=== PATIENT | male | born 1940 | race Caucasian/White ===

== ENCOUNTER 2019-07-01 16:06 | Inpatient (IN) | payer OTHER, SELFPAY ==
[2019-07-01] VITALS (12 sets, daily range): BP systolic 155–186; BP diastolic 86–95; PULSE 85–133; RESP 16–20; TEMP 36.7–36.8; O2SAT 95–97; BMI 28.9; BMI 28.8
--- NOTE | 2019-07-01 16:39 | EKG12_ITS ---
Test Reason : AFIB Blood Pressure : / mmHG Vent. Rate : 105 BPM Atrial Rate : 111 BPM P-R Int : 000 ms QRS Dur : 168 ms QT Int : 398 ms P-R-T Axes : 000 109 023 degrees QTc Int : 526 ms Atrial fibrillation with premature ventricular or aberrantly conducted complexes Right bundle branch block Inferior infarct , age undetermined Abnormal ECG Confirmed by KIMBERLY STOCKTON, ALLYSON ([id number]), associate editor ISAIAH OCASIO ([id number]) on 07/02/2019 1:37:54 PM Referred By: Confirmed By:ALLYSON HARRIS MD
--- NOTE | 2019-07-01 16:40 | RAD_ITS ---
STUDY: X-RAY CHEST REASON FOR EXAM: Male, 79 years old. SYNCOPE, PATIENT FOUND ON FLOOR BY FAMILY TECHNIQUE: Single AP portable view of the chest. COMPARISON: None. 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 The lungs are clear and expanded. There is no demonstrated pleural abnormality. There is borderline cardiomegaly. Normal mediastinum and huber. Normal visualized pulmonary arteries. There are calcified plaques of the aortic arch. There are diffuse degenerative changes of the visualized thoracic spine. Normal visualized ribs, clavicles, and shoulders. There is no demonstrated abnormality of the visualized soft tissue structures of the upper abdomen. RAD/Chest 1 View (Portable) IMPRESSION: Borderline heart size. Calcified plaques of the aortic arch. Degenerative changes of the thoracic spine. No acute cardiopulmonary disease process is seen. Electronically Signed: Abe Leonard MD at 16:55 EDT , Service support ,
--- NOTE | 2019-07-01 16:41 | ED.VISSUMM ---
- ER Visit Summary Date of Service: 07/01/19 Chief Complaint: Syncope History of Present Illness: The patient is a 79 M who presents with syncopal episode that occurred today. Patient states he was standing at home and then remembers waking up on the floor. Patient states his son called EMS. Patient states he thinks the syncopal episode only lasted a couple seconds. Patient denies any palpitations. Patient denies any lightheadedness or dizziness. Patient states he was feeling fine before and after the syncopal episode. Patient denies any other symptoms. Physical Examination: Vital signs are stable except for mild tachycardia of 108. Patient is afebrile. Patient is in no acute distress. Oral mucosa is pink and moist. Neck is supple. Trachea is midline. There is no JVD noted. Heart was irregularly irregular. Lungs are clear and equal bilaterally. Abdomen is soft. Bowel sounds are normal. There is no tenderness. There is no rebound or guarding noted. Skin is warm dry. Cranial nerves II through XII are intact. There are no focal motor or sensory deficits noted. Extremities are intact. There is no calf tenderness but there is 1+ edema of the lower legs bilaterally. Test Results: EKG shows atrial fibrillation with a rate of 105. There is a right bundle branch block pattern noted. There are no acute ST or T wave changes. CBC was within normal limits. Comprehensive metabolic profile showed slightly low CO2 of 19 and a slightly elevated chloride of 118. Potassium was also slightly low at 3.3. Calcium is low at 6.5. Troponin was indeterminate at 0.060. Portable chest x-ray was obtained. There are chronic changes but no acute cardiopulmonary process. This was interpreted by the radiologist and myself. Emergency Department Course and Treatment: Patient remained asymptomatic here in the emergency department. Patient was advised of his findings. Patient was given a gram of calcium gluconate. Patient was also given 4 baby aspirin. Patient is agreeable to staying in the hospital. Case was discussed with the hospitalist. She will admit the patient for observation to the PCU. Disposition: Admit to hospital Impression: 1. Syncope 2. New onset atrial fibrillation 3. Hypocalcemia 4. Elevated troponin This note was generated with [employer] software. It may contain incorrect words, spelling, and punctuation that were not noted in review of the chart prior to signing ED Disposition - Plan for ED Patient: Disposition: Acute Care Hospital [facility] Diagnosis: Syncope and collapse, New onset atrial fibrillation, Hypocalcemia, Elevated troponin
[2019-07-01 16:50] LABS: Absolute Neutrophil Count 6.2 X10^3/uL (2.0-7.7); Basophil# 0.04 X10^3/uL; Basophil% 0.4 % (0-1); Eosinophil# 0.26 X10^3/uL; Eosinophils% 2.6 % (0-5); Hematocrit 41.3 % (40-54); Hemoglobin 13.4 g/dL (13.0-16.5); Lymphocyte % 25.1 % (19-41); Mean Corp Hgb Conc 32.4 g/dL (32-36); Mean Corpuscular Hgb 29.3 pg (27.0-32.0); Mean Corpuscular Volume 90.2 fL (80-94); Mean Platelet Vol. 13.5 fl (6.2-12.0); Monocyte# 0.98 X10^3/uL; Monocyte% 9.8 % (0-10); NRBC Flagged by Analyzer 0 % (0-5); Neutrophil # 6.17 X10^3/uL (2.7-7.7); Neutrophil % 61.9 % (47-70); Platelet Count 135 K/mm3 (150-450); RBC Distribution Width CV 12.7 % (11.6-14.6); RBC Distribution Width SD 41.3 fl (35.1-43.9); Red Blood Count 4.58 M/mm3 (4.6-6.2)
[2019-07-01] MEDS: 0.9% Normal Saline 1,000 ML 1000 ML IV (16:59)
[2019-07-01 17:06] LABS: AST(SGOT) 21 U/L (15-37); Alanine Aminotransfer ALT/SGPT 27 U/L (16-61); Albumin, Serum 2.5 g/dL (3.2-5.0); Alkaline Phosphatase 47 U/L (45-117); Anion Gap 8 (5-15); BUN 19 mg/dL (7-18); BUN/Creat Ratio 27.4 RATIO (10-20); Calcium,Total 6.5 mg/dL (8.5-10.1); Chloride 118 mmol/L (98-107); Creatinine, Serum 0.69 mg/dL (0.70-1.30); EST Glomerular Filtration Rate 118 mL/min (>60); Est Glom Filt Rate - Afr Amer 142 mL/min (>60); Estimated Creatinine Clearance 59.85 ml/min; Globulin 2.4 g/dL (2.2-4.2); Glucose 78 mg/dL (74-106); Potassium 3.3 mmol/L (3.5-5.1); Protein, Total 4.9 g/dL (6.4-8.2); Sodium Level 145 mmol/L (136-145)
--- NOTE | 2019-07-01 17:31 | HP.PCM_ITS ---
Problem List (1) New onset a-fib Status: Acute (2) Syncope and collapse Status: Acute (3) Elevated BP without diagnosis of hypertension Status: Acute (4) Cardiac enzymes elevated Status: Acute (5) Hypocalcemia Status: Acute (6) Hypokalemia Status: Acute History of Present Illness Date of Admission: 07/01/19 Chief Complaint: Syncopal event The patient is a 79 y/o M w/ no significant PMHx who presents to the [facility] ED on 07/01/19 with history of syncopal event lasting seconds from standing with no prodrome including no lightheadedness, no dizziness, no tunnel vision, no chest pain, no palpitations prompting son to bring the patient to the ED. He admitte dly does not see a physician nor has he in many years. He does not he donates blood and when they check his blood pressures they have always been normal. He denies feeling poorly recent including no cough, congestion, headache, fevers, abdominal pain, dyspnea, dysuria. Work-up in the ED included T 98.1, heart rate 108, BP initially 180/95 with repeat 155/89, respiratory rate 20, 96% on room air, CBC with WC 10, hemoglobin 13.4, platelet 135 with no market shift, CMP potassium 3.3, chloride 118, carbon oxide 19, BUN/creatinine 19/0.69, glucose 78, calcium 6.5, troponin 0.060, chest x-ray with borderline heart size, calcified plaques of the aortic arch, generative changes of the thoracic spine with no acute cardiopulmonary findings, EKG with atrial fibrillation with a rate of 105 with a right bundle branch block with no acute ST or T wave changes. Past Medical History Allergies No Known Allergies Allergy (Verified 07/01/19 16:14) Home Medications: Ambulatory Orders Medication Instructions Recorded NK 07/01/19 Surgical History: no surgical history Psychiatric History: No pertinent psych hx Lives: Spouse/ Significant Other Smoking Status: Never smoker Tobacco Use: Non-smoker Alcohol: None Drugs: None - *Family History Maternal History Items: - - Patient denies any market maternal or paternal family history including heart disease, diabetes or cancer. Paternal History Items: - - Patient denies any market maternal or paternal family history including heart disease, diabetes or cancer. Review of Systems Constitutional: Denies: Anorexia, Chills, Fever, Malaise, Weakness, Weight Change, Fatigue HEENT: Denies: Head Aches, Sinus Congestion, Sinus Drainage Cardiovascular: Reports: Syncope. Denies: Chest Pain, Chest Pressure, Chest Tightness, Light Headedness, Orthopnea, Palpitations Respiratory: Denies: Cough, Shortness of Breath, Shortness of breath at rest, Shortness of breath upon exertion, Sputum production Gastrointestinal: Denies: Abdominal Pain, Nausea, Vomiting Genitourinary: Denies: Dysuria Musculoskeletal: Denies: Joint Pain, Joint Tenderness Skin: Denies: Rash, Wounds Neurological: Denies: Numbness, Tingling, Focal weakness Psychiatric: Denies: Anxiety, Depression, Homicidal Ideations, Suicidal Ideations Hematologic/ Lymphatic: Denies: Easy Bruising, Easy Bleeding VTE Information - Inpt Only VTE Present on Admission: No VTE Mechan Device Prophylaxis: SCD's VTE Pharm Prophylaxis ordered?: Yes Patient Problems: Active and Suspected Problems New onset a-fib (Acute) Syncope and collapse (Acute) Elevated BP without diagnosis of hypertension (Acute) Cardiac enzymes elevated (Acute) Hypocalcemia (Acute) Hypokalemia (Acute) Subjective: Patient seated upright in the ED bed, no acute distress, denies any complaints at this time. Objective: Physical Examination: General: awake, alert, oriented x 3 and cooperative, seated upright in bed in no apparent distress. Skin: normal color, turgor, no icterus, cyanosis. HEENT: AT/NC, EOMI, PERRLA, MMM, no carotid bruits or marked JVD noted. Lungs: CTA bilaterally, moderate effort, mild decrease BL bases, no rales, ronchi or wheezing. Heart: Irregular irregular; no gallop, rub audible. Abdomen: soft, overweight, NTTP, ND, normal BS, no HSM. Extremities: no cyanosis, clubbing, bilateral extremity ankle to distal hernández nonpitting edema. Neurological: patient awake, alert, oriented x 3; cognitive function intact; pupils equally reactive to light and accomodation; cranial nerves II-XII grossly normal, moving all 4 extremities, no focal deficits, strength preserved. Psychiatric: affect appears normal, no acute evidence of depressive or anxiety feelings. - Physical Exam Vitals/I&O's: Vital Signs Temp Pulse Resp BP Pulse Ox 98.1 F 107 H 18 155/89 H 95 07/01/19 16:08 07/01/19 17:14 07/01/19 17:14 07/01/19 17:14 07/01/19 17:14 Oxygen Delivery Method Room Air Weight: 190 lb 7.67 oz Body Mass Index (BMI) 28.9 Laboratory Results 07/01/19 16:10: WBC 10.0, RBC 4.58 L, Hgb 13.4, Hct 41.3, MCV 90.2, MCH 29.3, MCHC 32.4, RDW Std Deviation 41.3, RDW Coeff of Carlos 12.7, Plt Count 135 L, MPV 13.5 H, Immature Gran % (Auto) 0.200, Neut % (Auto) 61.9, Lymph % (Auto) 25.1, [place] % (Auto) 9.8, Eos % (Auto) 2.6, Baso % (Auto) 0.4, Absolute Neuts (auto) 6.2, Absolute Lymphs (auto) 2.50, Nucleated RBC % 0 07/01/19 16:10: Sodium 145, Potassium 3.3 L, Chloride 118 H, Carbon Dioxide 19.0 L, Anion Gap 8, BUN 19 H, Creatinine 0.69 L, Estim Creat Clear Calc 59.85, Est GFR (MDRD) Af Amer 142, Est GFR (MDRD) Non-Af 118, BUN/Creatinine Ratio 27.4 H, Glucose 78, Calcium 6.5 L*, Total Bilirubin 0.30, AST 21, ALT 27, Alkaline Phosphatase 47, Troponin I 0.060 H, Total Protein 4.9 L, Albumin 2.5 L, Globulin 2.4, Albumin/Globulin Ratio 1.0 Current Medications Sodium Chloride () 1,000 mls @ 1,000 mls/hr IV .Q1H ONE Stop: 07/01/19 17:37 Last Admin: 07/01/19 16:59 Dose: 1,000 mls/hr Documented by: Calcium Gluconate 1 gm/ (Dextrose) 60 mls @ 60 mls/hr IV X1 ONE Stop: 07/01/19 18:27 Assessment/Plan All Active Problems New onset a-fib (Acute) Syncope and collapse (Acute) Elevated BP without diagnosis of hypertension (Acute) Cardiac enzymes elevated (Acute) Hypocalcemia (Acute) Hypokalemia (Acute) The patient is a 79 y/o M w/ no significant PMHx who presents to the [facility] ED on 07/01/19 with history of syncopal event lasting seconds from standing with no prodrome including no lightheadedness, no dizziness, no tunnel vision, no chest pain, no palpitations prompting son to bring the patient to the ED. 1. New onset, Paroxsymal atrial fibrillation without RVR demonstrated: EKG in ED w/ atrial fibrillation, not in RVR, new onset but unclear timeline as no recent health care and asymptomatic aside recent syncopal event as noted. Patient administered asa in ED. Will admit to PCU, maintain on telemetry, obtain cardiac enzyme serial set, obtain magnesium level, obtain ECHO, obtain TSH level, obtain coags and initiate xarelto and metoprolol. 2. Syncopal Event: Possibly related to #1 but unclear timeline onset, EKG in ED w/ atrial fibrillation without evidence of acute ischemia, chest x-ray with borderline heart size, calcified plaques of the aortic arch, generative changes of the thoracic spine with no acute cardiopulmonary findings, initial trop 0.06. Will admit to PCU, place on a monitored bed to assure no acute myocardial infarction with serial cardiac enzymes and EKGs. Will maintain on fall precautions, obtain admission orthostatic, obtain ECHO, obtain mag level. 3. Indeterminate cardiac enzyme: Admission troponin 0.06, will place on a monitored bed to assure no acute myocardial infarction with serial cardiac enzymes and EKGs. ASA, NG, morphine. 4. Elevated BP without HTN diagnosis: Acutely elevated blood pressure upon presentation, suspect likely undiagnosed hypertension, continue to monitor, adding metoprolol as noted #1, PRN IV hydralazine additionally. 5. Hypokalemia: Admission K+ 3.3, supplementation given, repeat level in AM, magnesium level additionally requested. 6. Hypocalcemia, Unclear etiology: Admission calcium 6.5, calcium gluconate administered in the ED, will obtain ionized calcium, obtain vitamin D level (25- (OH)D, 1,25-(OH)2D), PTH, Mag, Phos, UCa levels to further assess. 7. DVT prophylaxis: Xarelto as noted, SCDs. 8. CODE status: Patient JAYLIN is his and living will is currently in place. Discussed CODE status at length including difference between FULL code, DNR-CCA and DNR-CC status. Following discussions about the differences in these status, requested DNR CCA, no intubation status. Advanced Care Planning Face to Face Time: 16 minutes. OBSV E&M: 87286 Initial observation care L3 Procedures: 95844 Advncd Care Plan 30 Min
[2019-07-01] MEDS: Aspirin 81 MG TAB.CHEW 324 MG PO (18:12)
--- NOTE | 2019-07-01 18:55 | ECHOD_ITS ---
Reason For Study: Arrhythmia Procedure This was a 2D Doppler, Color Flow transthoracic echocardiogram. Exam performed portable in patient room. Left Ventricle Normal LV size. Severe eccentric left ventricular hypertrophy. The echo findings are consistent with hypertrophic cardiomyopathy. Left ventricular systolic function is normal. The estimated ejection fraction is 60 %. No regional wall motion abnormalities noted. Right Ventricle Normal RV size. Normal systolic function. Atria The left atrium is severely enlarged. The right atrium is moderately enlarged. Mitral Valve There is moderate mitral annular calcification. Mild-Moderate (1-2+) eccentric mitral valve insufficiency. Aortic Valve Trisinus/trileaflet aortic valve. Mild (1+) aortic valve insufficiency. Pulmonic Valve Normal pulmonic valve. Mild pulmonic valve insufficiency identified. Great Vessels Normal aortic root. The pulmonary artery is normal size. Normal inferior vena cava. Pericardium/Pleural No pericardial effusion. MMode/2D Measurements & Calculations LVIDd: 3.2 cm IVSd: 3.2 cm Ao root diam: 3.4 cm LVIDs: 1.8 cm LVPWd: 1.8 cm RVDd: 4.3 cm FS: 43.5 % LAV(MOD-bp): 150.6 ml LA A4 area: 37.7 cm2 LA dimension(2D): 5.6 cm LAV(MOD-bp) Indexed: 77.4 ml/m2 LAV(MOD-sp2): 144.6 ml LAV(MOD-sp4): 153.0 ml RA A4 area: 28.4 cm2 Doppler Measurements & Calculations MV E max hussein: 110.0 cm/sec MV V2 max: 123.0 cm/sec Ao V2 max: 130.2 cm/sec MV max P.1 mmHg Ao max P.8 mmHg MV V2 mean: 62.8 cm/sec MV mean P.0 mmHg MV V2 VTI: 20.3 cm AI max hussein: 414.8 cm/sec LV V1 max: 109.9 cm/sec PA V2 max: 98.6 cm/sec AI max P.8 mmHg LV V1 max P.9 mmHg AI dec slope: 259.7 cm/sec2 AI P1/2t: 467.8 msec PI end-d hussein: 143.8 cm/sec TR max hussein: 321.3 cm/sec TR max P.3 mmHg Interpretation Summary Normal LV size. Severe eccentric left ventricular hypertrophy. The echo findings are consistent with hypertrophic cardiomyopathy-with apical chamber obliteration. The estimated ejection fraction is 60 %. There is moderate mitral annular calcification. Mild-Moderate (1-2+) eccentric mitral valve insufficiency. Trisinus/trileaflet aortic valve. Ordering Physician: Rebecca Hall Performed By: Rea Vargas, CAMI, RVT
[2019-07-01 19:11] LABS: International Normalized Ratio 1.2; Prothrombin Time (Protime)PT. 14.7 SECONDS (11.7-14.9)
[2019-07-01 19:12] LABS: Partial Thromboplast Time 32.3 Seconds (24.1-36.2)
[2019-07-01 19:27] LABS: Magnesium 1.4 mg/dL (1.6-2.6); Phosphorus 2.7 mg/dL (2.5-4.9); Thyroid Stim Hormone (TSH) 3.04 uIU/mL (0.358-3.74)
[2019-07-01] MEDS: Metoprolol Tartrate 25 MG Tablet PO (19:50)
[2019-07-01] MEDS: 0.9% Normal Saline 1,000 ML 100 ML IV (19:52)
[2019-07-02] VITALS (8 sets, daily range): BP systolic 137–169; BP diastolic 77–107; PULSE 83–119; RESP 16; TEMP 36–36.4; O2SAT 96
[2019-07-02 02:05] LABS: Calcium, Urine (Random) < 5.0 mg/dL (Not Estab.)
--- NOTE | 2019-07-02 05:55 | EKG12_ITS ---
Test Reason : AM EKG Blood Pressure : / mmHG Vent. Rate : 086 BPM Atrial Rate : 250 BPM P-R Int : 000 ms QRS Dur : 170 ms QT Int : 430 ms P-R-T Axes : 000 126 041 degrees QTc Int : 514 ms Atrial fibrillation Right bundle branch block Left posterior fascicular block Bifascicular block Confirmed by KIMBERLY STOCKTON, ALLYSON ([id number]), editor farm journal BERNARD SAMANIEGO ([id number]) on 07/03/2019 9:29:20 AM Referred By: DR HERNANDEZ Confirmed By:ALLYSON HARRIS MD
[2019-07-02 06:14] LABS: Absolute Lymphocyte Count 1.97 X10^3/uL (0.83-4.51); Absolute Neutrophil Count 4.8 X10^3/uL (2.0-7.7); Basophil# 0.04 X10^3/uL; Basophil% 0.5 % (0-1); Eosinophil# 0.21 X10^3/uL; Eosinophils% 2.7 % (0-5); Hematocrit 41.7 % (40-54); Hemoglobin 13.3 g/dL (13.0-16.5); Lymphocyte # 1.97 X10^3/ul (4.0); Mean Corp Hgb Conc 31.9 g/dL (32-36); Mean Corpuscular Hgb 29.4 pg (27.0-32.0); Mean Corpuscular Volume 92.1 fL (80-94); Mean Platelet Vol. 13.3 fl (6.2-12.0); Monocyte# 0.81 X10^3/uL; Monocyte% 10.3 % (0-10); NRBC Flagged by Analyzer 0 % (0-5); Neutrophil # 4.84 X10^3/uL (2.7-7.7); Neutrophil % 61.2 % (47-70); Platelet Count 124 K/mm3 (150-450); RBC Distribution Width CV 12.7 % (11.6-14.6); RBC Distribution Width SD 42.5 fl (35.1-43.9); Red Blood Count 4.53 M/mm3 (4.6-6.2); White Blood Count 7.9 K/mm3 (4.4-11.0)
[2019-07-02 06:41] LABS: Anion Gap 6 (5-15); BUN 19 mg/dL (7-18); BUN/Creat Ratio 19.3 RATIO (10-20); Calcium,Total 8.3 mg/dL (8.5-10.1); Chloride 108 mmol/L (98-107); Cholesterol 152 mg/dL (200); Creatinine, Serum 0.99 mg/dL (0.70-1.30); EST Glomerular Filtration Rate 78 mL/min (>60); Est Glom Filt Rate - Afr Amer 95 mL/min (>60); Estimated Creatinine Clearance 58.42 ml/min; Glucose 88 mg/dL (74-106); High Density Lipoprotein 40 mg/dL; Magnesium 2.6 mg/dL (1.6-2.6); Potassium 4.5 mmol/L (3.5-5.1); Sodium Level 140 mmol/L (136-145); Triglycerides 71 mg/dL; Very Low Density Lipoprotein 14 mg/dL (5-40)
[2019-07-02 08:54] LABS: PTHIN 55.6 pg/mL (18.4-80.1)
[2019-07-02 08:58] LABS: Vitamin D,25 Hydroxy 28.7 ng/mL
[2019-07-02] MEDS: Metoprolol Tartrate 25 MG Tablet PO ×2 (10:06→11:26)
[2019-07-02] MEDS: Aspirin 81 MG TAB.CHEW PO (10:06)
--- NOTE | 2019-07-02 11:10 | CASEMGMT ---
ARNIE BANG Face to Face with patient for initial transition planning/care coordination assessment. RN MERRITT introduced self and role at [facility]. Patient lying in bed, alert and oriented. Patient willing to participate in assessment and is able to answer all questions appropriately. Care providers, pharmacy, and demographics verified. Patient wishes to discharge home, denies need for home health at this time. Patient states he has no further needs or concerns at this time. CM to follow for discharge planning needs that may arise. PCP: No PCP but states that he will go to his PCP Dr. Monster Cabezas in [place] Specialists: none Preferred Pharmacy: [facility] in [place] Insurance: [employer] Prescription Benefit: none. Savings card for Eliquis given to patient and instructed to follow-up with PCP regarding medication. Living Will/HPOA: none LNOK: Living Arrangements: Patient lives with in home with bed and bath on main level of home. 3 steps and railing to enter the home. Patient is independent at home. Transportation: Driving service DME/HHC: Patient denies any DME. No Previous HHC Disposition Plan: Patient to discharge home with family support and follow-up plans in place. Isabelle GARBER, RN, CM
[2019-07-02] MEDS: APIXABAN 5 MG TABLET 10 MG PO (11:27)
--- NOTE | 2019-07-02 12:22 | DCINST_ITS ---
- Discharge Diagnoses Current Active Problems: Current Active and Chronic Problems New onset a-fib (Acute) Syncope and collapse (Acute) Elevated BP without diagnosis of hypertension (Acute) Cardiac enzymes elevated (Acute) Hypocalcemia (Acute) Hypokalemia (Acute) Syncope and collapse (Acute) New onset atrial fibrillation (Acute) Hypocalcemia (Acute) Elevated troponin (Acute) You will use the following diet at home:: No restrictions Your food should be the consistency of: Regular Your liquids should be the consistency of: Regular/Thin Discharge Activity: Return to Normal Activity Weight Bearing Status: Full weight bearing Additional Instructions: do not take aspirin or Ibuprofen or Alleve for pain- take Tylenol only for pain Allergies/Adverse Reactions: Allergies No Known Allergies Allergy (Verified 07/01/19 16:14) Medications to take at Discharge Apixaban [Eliquis] 10 mg PO UD #68 tab 07/02/19 Metoprolol Tartrate [Lopressor (beta august)] 50 mg PO BID #60 tab 07/02/19 The following prescriptions were given: Apixaban [Eliquis] 10 mg PO UD #68 tab Transmission Status: Pending to [facility] Metoprolol Tartrate [Lopressor (beta august)] 50 mg PO BID #60 tab Transmission Status: Pending to [facility] Primary Care Physician: Care Physician,No Primary [Primary Care Provider] - Test Results: Test results from this visit will be discussed in further detail at your follow- up appointment, if applicable.
--- NOTE | 2019-07-02 14:56 | PCM.DC.SUM ---
Discharge Date and Diagnosis Date of Admission: 07/01/19 Date of Discharge: 07/02/19 - Primary Discharge Diagnosis #1 syncope secondary to tachycardia #2 new onset atrial fibrillation #3 essential hypertension #4 hypokalemia #5 hypocalcemia #6 elevated troponin secondary to tachycardia #7 possible hypertrophic cardiomyopathy No evidence of non-STEMI was noted Hospital Course and Treatment Operations: None Procedures: 2-D Echocardiogram Summary of Care Provided: The patient is a 79 year old M who was seen in the emergency room at [facility] after having a brief syncopal episode at home. Patient stated he was standing at home and then remembers waking up on the floor. Patient's son called the squad, work-up in the emergency room included an EKG which showed atrial fibrillation with a rate of 105, CBC was within normal limits, potassium was slightly low at 3.3, calcium was low at 6.5. Troponin was intermediate at 0.060. Chest x-ray was obtained but showed no acute cardiopulmonary process, patient was given calcium gluconate in the emergency room and 4 baby aspirin, he was admitted to PCU and cardiac isoenzymes were cycled and they remain slightly elevated. Patient was placed on a beta-august and his heart rate appeared under good control. Patient had an echocardiogram performed which showed evidence of possible hypertrophic cardiomyopathy, EF was normal. Patient's LDL cholesterol was 98. Patient was placed on Eliquis. Patient was seen and examined on 07/02/2019: On examination he appeared in good health and spirits. Vital signs as documented. Skin warm and dry and without overt rashes. Neck without JVD, neck was supple, trachea midline, thyroid was normal. Lungs clear bilaterally, normal air movement was noted. Heart exam notable for irregular rhythm, normal sounds and absence of murmurs, rubs or gallops. Abdomen unremarkable and without evidence of organomegaly, masses, or abdominal aortic enlargement. Bowel sounds are present, abdomen is not distended. Extremities nonedematous, no cyanosis was noted, no clubbing was noted. Neuro: Cranial nerves II through XII are grossly intact, no focal motor deficits were noted, sensation to light touch and pinprick intact, motor exam 5/5 throughout. Psych: Patient is alert and oriented x3, he does not appear anxious or depressed, he does not appear agitated. Patient appears stable for discharge on 07/02/2019, etiology of the patient's brief syncopal episode was probably secondary to tachycardia. - Physical Exam Vitals/I&O's: Vital Signs Temp Pulse Resp BP Pulse Ox 97.5 F L 89 16 154/77 H 96 07/02/19 06:40 07/02/19 11:26 07/02/19 06:40 07/02/19 06:45 07/02/19 07:35 Oxygen Delivery Method Room Air Weight: 83.3 kg Body Mass Index (BMI) 28.8 Orthostatic Vital Signs Start: 07/01/19 21:33 Freq: q24h Status: Active Protocol: Activity Type Activity Date Activity User E-Sign Co-Sign Detail Recorded Client Recorded Date Recorded By Document 07/02/19 06:45 EEA [id number] 07/02/19 06:53 EEA 07/02/19 06:45 Orthostatic Vitals Standing -Blood Pressure (90/60-120/80) 169/107 H -Extremity Use Left Arm Sitting -Blood Pressure (90/60-120/80) 137/83 H -Extremity Use Left Arm Lying -Blood Pressure (90/60-120/80) 154/77 H -Extremity Use Left Arm Intake and Output for Last 24 Hours 06/30/19 07/01/19 07/02/19 23:59 23:59 23:59 Intake Total 1280 / 1280 1344.00 / 1344.00 Balance 1280 / 1280 1344.00 / 1344.00 Laboratory Results 07/01/19 16:10: WBC 10.0, RBC 4.58 L, Hgb 13.4, Hct 41.3, MCV 90.2, MCH 29.3, MCHC 32.4, RDW Std Deviation 41.3, RDW Coeff of Carlos 12.7, Plt Count 135 L, MPV 13.5 H, Immature Gran % (Auto) 0.200, Neut % (Auto) 61.9, Lymph % (Auto) 25.1, [place] % (Auto) 9.8, Eos % (Auto) 2.6, Baso % (Auto) 0.4, Absolute Neuts (auto) 6.2, Absolute Lymphs (auto) 2.50, Nucleated RBC % 0 07/01/19 16:10: Sodium 145, Potassium 3.3 L, Chloride 118 H, Carbon Dioxide 19.0 L, Anion Gap 8, BUN 19 H, Creatinine 0.69 L, Estim Creat Clear Calc 59.85, Est GFR (MDRD) Af Amer 142, Est GFR (MDRD) Non-Af 118, BUN/Creatinine Ratio 27.4 H, Glucose 78, Calcium 6.5 L*, Total Bilirubin 0.30, AST 21, ALT 27, Alkaline Phosphatase 47, Troponin I 0.060 H, Total Protein 4.9 L, Albumin 2.5 L, Globulin 2.4, Albumin/Globulin Ratio 1.0 07/01/19 16:10: PT 14.7, INR 1.2, APTT 32.3 07/01/19 16:10: Phosphorus 2.7, Magnesium 1.4 L, TSH 3.04 07/01/19 16:10: PTH Intact 55.6 07/01/19 19:33: Vitamin D 25-Hydroxy 28.7 07/01/19 19:33: Ionized Calcium Pending 07/01/19 19:33: Vit D 1,25-Dihydroxy Pending 07/01/19 19:33: Troponin I 0.082 H 07/01/19 22:10: Troponin I 0.095 H 07/01/19 23:55: Ur Random Calcium < 5.0 07/02/19 05:23: WBC 7.9, RBC 4.53 L, Hgb 13.3, Hct 41.7, MCV 92.1, MCH 29.4, MCHC 31.9 L, RDW Std Deviation 42.5, RDW Coeff of Carlos 12.7, Plt Count 124 L, MPV 13.3 H, Immature Gran % (Auto) 0.300, Neut % (Auto) 61.2, Lymph % (Auto) 25.0, [place] % (Auto) 10.3 H, Eos % (Auto) 2.7, Baso % (Auto) 0.5, Absolute Neuts (auto) 4.8, Absolute Lymphs (auto) 1.97, Nucleated RBC % 0 07/02/19 05:23: Sodium 140, Potassium 4.5, Chloride 108 H, Carbon Dioxide 26.0, Anion Gap 6, BUN 19 H, Creatinine 0.99, Estim Creat Clear Calc 58.42, Est GFR (MDRD) Af Amer 95, Est GFR (MDRD) Non-Af 78, BUN/Creatinine Ratio 19.3, Glucose 88, Calcium 8.3 L, Magnesium 2.6, Triglycerides 71, Cholesterol 152, LDL Cholesterol 98, VLDL Cholesterol 14, HDL Cholesterol 40 Discharge Activity: Return to Normal Activity Weight Bearing Status: Full weight bearing Home Medications: Medications to take at Discharge Apixaban [Eliquis] 10 mg PO UD #68 tab 07/02/19 Metoprolol Tartrate [Lopressor (beta august)] 50 mg PO BID #60 tab 07/02/19 Following Prescrptions Were Given to Patient: Apixaban [Eliquis] 10 mg PO UD #68 tab Transmission Status: Received by [facility] Metoprolol Tartrate [Lopressor (beta august)] 50 mg PO BID #60 tab Transmission Status: Received by [facility] Primary Care Physician: Care Physician,No Primary [Primary Care Provider] - Disposition: Home Minutes spent on discharge:: 31 Patient Condition:: Stable Medical Necessity - Tobacco Use Smoking Status: Never smoker Tobacco Use: Non-smoker Meaningful Use Info Meaningful Use Diagnoses (Choose all that apply): None applicable Inpatient E&M: 42425 Disch Hosp
[2019-07-05 12:01] LABS: Vitamin D 1,25-Dihydroxy 23.4 pg/mL (19.9-79.3)
== END 2019-07-02 12:24 | disposition home or self-care (01) | DRG 310 ==
LOC: ED 17:43 → PCU 18:11
PROVIDERS: Admitting Provider Family Medicine; Emergency Provider Emergency Medicine; Visit Provider Internal Medicine
DX: I48.91 Unspecified atrial fibrillation (principal); E87.6 Hypokalemia; I42.2 Other hypertrophic cardiomyopathy; E83.51 Hypocalcemia; R55 Syncope and collapse; R00.0 Tachycardia, unspecified; I10 Essential (primary) hypertension; Z66 Do not resuscitate
CPT/HCPCS: 36415; 71045; 80048; 80053; 80061; 82306; 82330; 82340; 82652; 83735; 83970; 84100; 84443; 84484; 85025; 85610; 85730; 93005; 93306; 99251; 99285; J7030; J7050; A4216; G0463; J0610